=== PATIENT | male | born 1985 | race Caucasian/White ===

== ENCOUNTER 2017-03-14 11:32 | Day surgery (SDC) | payer OTHER ==
[~2017-03-14 11:32] MED LIST: Lactated Ringers 1,000 ML IV SCH; Lidocaine 1%/Sod Bicarbonate in NS 8.4% 1 ML Syringe PRN; Sodium Chloride 0.9% 10 ML Syringe FLUSH PRN
--- NOTE | 2017-03-14 12:26 | PCM.PREANE ---
Preanesthetic Assessment - Anesthesia/Transfusion/Family Hx Anesthesia History: Prior Anesthesia Without Reaction Family History of Anesthesia Reaction: No Transfusion History: No Prior Transfusion(s) - Review of Systems General: No Symptoms Pulmonary: No Symptoms Cardiovascular: No Symptoms, Other (Hospitalized with racing heart in 2014. Consuming too many energy drinks. ) Gastrointestinal: Other (Occasional Heart Burn. ) Neurological: No Symptoms Other: Reports: None - Physical Assessment NPO Status Date: 03/13/17 NPO Status Time: 22:30 Pulse: 69 O2 Sat by Pulse Oximetry: 97 Respiratory Rate: 24 Blood Pressure: 125/83 Temperature: 36.4 C Weight: 110 kg ASA Class: 2 Mental Status: Alert & Oriented x3 Airway Class: Mallampati = 1 Dentition: Reports: Normal Dentition Thyro-Mental Finger Breadths: 3 Mouth Opening Finger Breadths: 3 ROM/Head Extension: Full Lungs: Clear to Auscultation, Normal Respiratory Effort Cardiovascular: Regular Rate, Regular Rhythm - Allergies Allergies/Adverse Reactions: Allergies Allergy/AdvReac Type Severity Reaction Status Date / Time amoxicillin Allergy Cannot Verified 03/13/17 08:16 Remember - Acknowledgements Anesthesia Type Planned: MAC Pt an Appropriate Candidate for the Planned Anesthesia: Yes Alternatives and Risks of Anesthesia Discussed w Pt/Guardian: Yes Pt/Guardian Understands and Agrees with Anesthesia Plan: Yes PreAnesthesia Questionnaire Cardiovascular History: Reports: None Respiratory History: Reports: None Gastrointestinal History: Reports: Gastritis, Other (See Below) Other Gastrointestinal History: hematochezia Genitourinary History: Reports: None ROAD CUTTER History: Reports: None Musculoskeletal History: Reports: None Neurological History: Reports: None Psychiatric History: Reports: None Endocrine/Metabolic History: Reports: None Hematologic History: Reports: None Immunologic History: Reports: None Oncologic (Cancer) History: Reports: None Dermatologic History: Reports: Other (See Below) Other Dermatologic History: scar to hand - Past Surgical History Head Surgeries/Procedures: Reports: None HEENT Surgical History: Reports: Naso-Sinus Surgery Cardiovascular Surgical History: Reports: None Respiratory Surgical History: Reports: None GI Surgical History: Reports: None Female Surgical History: Reports: None Male Surgical History: Reports: None Endocrine Surgical History: Reports: None Neurological Surgical History: Reports: None Musculoskeletal Surgical History: Reports: None Oncologic Surgical History: Reports: None - SUBSTANCE USE Smoking Status *Q: Current Some Day Smoker Recreational Drug Use History: No - HOME MEDS Home Medications: Home Meds . [No Known Home Meds] 03/13/17 [History] - CURRENT (IN HOUSE) MEDS Current Meds: Current Medications Lactated Ringer's (Ringers, Lactated) 1,000 mls @ 125 mls/hr IV ASDIRECTED LOLITA Stop: 03/14/17 23:00 Lidocaine/Sodium Bicarbonate (Buffered Lidocaine 1% In Ns 8.4%) 0.25 ml .XX ONETIME PRN PRN Reason: Prior to IV Start Stop: 03/14/17 18:00 Sodium Chloride (Saline Flush) 10 ml FLUSH ASDIRECTED PRN PRN Reason: Keep Vein Open Stop: 03/14/17 18:00
[2017-03-14] MEDS ORDERED: Lidocaine 1% 2 ML ONE ×2 (12:59)
[2017-03-14] MEDS ORDERED: Propofol 200 MG/20 ML SDV ONE ×2 (12:59→13:39)
[2017-03-14] MEDS ORDERED: fentaNYL 100 MCG/2 ML SDV ONE (12:59)
--- NOTE | 2017-03-14 13:45 | PCM48HPAN ---
Post Anesthesia Note - EVALUATION WITHIN 48HRS OF ANESTHETIC Vital Signs in Normal Range: Yes Patient Participated in Evaluation: Yes Respiratory Function Stable: Yes Airway Patent: Yes Cardiovascular Function Stable: Yes Hydration Status Stable: Yes Pain Control Satisfactory: Yes Nausea and Vomiting Control Satisfactory: Yes Mental Status Recovered: Yes
--- NOTE | 2017-03-14 13:45 | PCM.OPNOTE ---
- General Post-Op/Procedure Note Date of Surgery/Procedure: 03/14/17 Operative Procedure(s): colonoscopy with random ileal and rectal biopsies Findings: perianal skin tags with internal hemorrhoids but otherwise normal colonoscopy Pre Op Diagnosis: chronic diarrhea with rectal bleeding Post-Op Diagnosis: 1. perianal skin tags. 2. Internal hemorrhoids Anesthesia Technique: MAC, Moderate Sedation Primary Surgeon: Hoang Drummond Pathology: ileal and rectal biopsies EBL in mLs: 0 Complications: None Condition: Good Free Text/Narrative:: After adequate IV sedation and analgesia was obtained with monitoring the patient was placed on his left side. Perianal inspection revealed the anal tags. On digital rectal examination I could palpate internal hemorrhoids. The sphincter tone was normal. A lubricated colonoscope was inserted into the rectum then advanced under direct vision with air insufflation as necessary to the cecum. The bowel preparation was adequate. I intubated the terminal ileum which was grossly normal. Given his history I took a random biopsy with cold forceps. The cecum, ascending colon, descending, and transverse colons were endoscopically normal with no mass lesions or evidence of inflammatory bowel disease. The sigmoid and rectum were unremarkable as well in this regard. A rectal biopsy was taken for review. Air was removed as I finished the procedure which he tolerated well. Retail Marketing Specialist photographs were taken for the patient and for the medical record.
== END 2017-03-14 14:10 | disposition home or self-care (01) ==
LOC: JD.SDS 11:32
PROVIDERS: ATTEND Surgery
DX: K64.8 Other hemorrhoids (principal); K64.4 Residual hemorrhoidal skin tags; Z88.1 Allergy status to other antibiotic agents; Z79.899 Other long term (current) drug therapy; Z87.891 Personal history of nicotine dependence
CPT/HCPCS: 45380; J3010; J7120; 00810; J2704

== ENCOUNTER 2017-10-02 13:43 | Emergency (ER) | payer OTHER ==
[2017-10-02] MEDS ORDERED: Acetaminophen/oxyCODONE 325-5 MG Tab PO ONE (14:12)
--- NOTE | 2017-10-02 14:12 | EDM.PDOC ---
ED HPI GENERAL MEDICAL PROBLEM - General Chief Complaint: Lower Extremity Injury/Pain Stated Complaint: RIGHT LEG Time Seen by Provider: 10/02/17 14:00 Source of Information: Reports: Patient History Limitations: Reports: No Limitations - History of Present Illness INITIAL COMMENTS - FREE TEXT/NARRATIVE: 32-year-old male presents to the ED for evaluation of severe pain right leg. Patient states he suffered a work related injury August 13 . 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 This resulted in a fracture of the distal right tibia. He was taken to [facility] where he underwent surgery august 14 with rodding of the tibia. He then went home to [place], [place] for rehabilitation. He did see PT there. Initially he was instructed to take his cast boot brace off and start walking on it only 2 weeks after surgery. He did so but had increased pain. He requested to see another PT who advised exactly the opposite. Back in the boot for another 2-3 weeks and then follow-up with orthopedic surgeon. Patient has having increased pain in the right lower extremity to the point that he can hardly sleep even though he keeps it elevated on a pillow at nighttime. He did see orthopedic surgery at least had x-rays of his right tib-fib about 7 days ago and apparently the surgeon felt there was good callus formation at the fracture site and no displacement of the tibial saleem. However over the last 2 days she's had increased pain and swelling into the point that he can't walk even to the bathroom today. Denies any shortness of breath or pleuritic chest pain or hemoptysis. Taking large doses of Aleve and/or Motrin for pain relief. Day his white but full turn gel on his knee and over the fracture site and he states his seem to give him some degree of pain relief. Currently pain is 8 out of 10 Onset: Other (Initial injury was mid July of this year.) Onset Date: 08/15/17 (Pain and swelling in the right lower extremity have increased dramatically over the last 48 hours.) Duration: Week(s): Location: Reports: Lower Extremity, Right Quality: Reports: Ache, Throbbing Severity: Severe Improves with: Reports: None (Current pain is 8 out of 10.) Worsens with: Reports: Other Context: Reports: Trauma (Initial fracture secondary to fall from a pole that he was climbing for work. Patient is alignment.). Denies: Activity (Movement and trying to weight-bear.), Exercise, Lifting, Sick Contact Associated Symptoms: Reports: No Other Symptoms Treatments CLAM PICKER: Reports: NSAIDS (Usually large doses of Aleve.) Right Leg Pain Score (Numeric/FACES): 7 - Related Data Allergies Allergy/AdvReac Type Severity Reaction Status Date / Time amoxicillin Allergy Cannot Verified 10/02/17 13:58 Remember Penicillins Allergy Cannot Verified 10/02/17 13:58 Remember Home Meds: Home Meds Gabapentin [Neurontin] 100 mg PO BID #60 capsule 10/02/17 [Rx] oxyCODONE HCl/Acetaminophen [Percocet 5-325 mg Tablet] 1 - 2 each PO Q6H PRN # 30 tablet 10/02/17 [Rx] Past Medical History Cardiovascular History: Reports: None Respiratory History: Reports: None Gastrointestinal History: Reports: Gastritis, Other (See Below) Other Gastrointestinal History: hematochezia Genitourinary History: Reports: None DIAL MOUNTER History: Reports: None Musculoskeletal History: Reports: None Neurological History: Reports: None Psychiatric History: Reports: None Endocrine/Metabolic History: Reports: None Hematologic History: Reports: None Immunologic History: Reports: None Oncologic (Cancer) History: Reports: None Dermatologic History: Reports: Other (See Below) Other Dermatologic History: scar to hand - Past Surgical History Head Surgeries/Procedures: Reports: None HEENT Surgical History: Reports: Naso-Sinus Surgery Cardiovascular Surgical History: Reports: None Respiratory Surgical History: Reports: None GI Surgical History: Reports: None Male Surgical History: Reports: None Endocrine Surgical History: Reports: None Neurological Surgical History: Reports: None Musculoskeletal Surgical History: Reports: None Oncologic Surgical History: Reports: None Social & Family History - Tobacco Use Smoking Status *Q: Never Smoker - Caffeine Use Caffeine Use: Reports: Coffee - Living Situation & Occupation Living situation: Reports: Occupation: Employed Review of Systems - Review of Systems Review Of Systems: See Below Constitutional: Denies: Chills, Diaphoresis, Fever, Weakness, Other Respiratory: Reports: No Symptoms Cardiovascular: Reports: No Symptoms GI/Abdominal: Reports: No Symptoms Genitourinary: Reports: No Symptoms Musculoskeletal: Reports: Leg Pain (See history of present illness) Skin: Reports: No Symptoms Neurological: Reports: No Symptoms Psychiatric: Reports: No Symptoms ED EXAM, GENERAL - Physical Exam Exam: See Below Exam Limited By: No Limitations General Appearance: Alert, WD/WN, Mild Distress Respiratory/Chest: No Respiratory Distress, Lungs Clear, Normal Breath Sounds, No Accessory Muscle Use Cardiovascular: Normal Peripheral Pulses, Regular Rate, Rhythm, No Edema, No Gallop, No Murmur, No Rub Peripheral Pulses: 1+: Dorsalis Pedis (R), 3+: Posterior Tibial (R), Dorsalis Pedis (L) GI/Abdominal: Normal Bowel Sounds, Soft, Non-Tender, No Organomegaly Back Exam: Normal Inspection, Full Range of Motion Extremities: Other (Patient has evidence of recent surgery to his right knee and tib-fib. This is where walk was inserted into his fracture tibia he does not have any true effusion of the right knee joint. His wound or surgical wound is tender to touch above his patella a little bit to the lateral aspect of the midline. He does have pain over his distal tibia at the fracture site. The entire leg is obviously swollen and very taut to palpation particularly in the calf musculature. There is no popliteal cyst. Does have pain on palpation in the popliteal fossa however.) Neurological: Alert, Oriented, CN II-XII Intact, Normal Cognition Psychiatric: Normal Affect, Normal Mood Skin Exam: Warm, Dry, Intact, Normal Color, No Rash Course - Vital Signs Last Recorded V/S: Last Vital Signs Temp 36.1 C 10/02/17 13:53 Pulse 80 10/02/17 13:53 Resp 16 10/02/17 13:53 BP 135/76 10/02/17 13:53 Pulse Ox 97 10/02/17 13:53 - Orders/Labs/Meds Orders: Active Orders 24 hr Category Date Time Status Tibia Fibula Rt [CR] Stat Exams 10/02/17 14:07 Taken VL Duplex Lwr Ext Veins Ltd Rt [US] Stat Exams 10/02/17 14:09 Taken Meds: Medications Discontinued Medications Generic Name Dose Route Start Last Admin Trade Name Freq PRN Reason Stop Dose Admin Oxycodone/Acetaminophen 2 tab 10/02/17 14:12 10/02/17 14:52 Percocet 325-5 Mg PO 10/02/17 14:13 2 tab ONETIME ONE Administration - Radiology Interpretation Free Text/Narrative:: 31-year-old male presents the ED for evaluation of severe pain right lower extremity. Initial injury occurred around mid July when he suffered a work related injury. 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 He landed hard on his right lower extremity suffering a fracture of his distal right tibia. He was taken to [facility] for definitive surgical management. Injury occurred on 13 August and surgery was done on the . He had a saleem placed in his right tibia. Discharge from hospital 2 days later and he went home to [facility] for cares this was close to home. He did see physiotherapy at that institution. He states he's been having a lot of pain in the leg. Orthopedic surgeon advised on follow-up just to continue Aleve. Patient states it's not helping with the pain. Over the last 2 days the right lower extremities become much more swollen than normal and much more painful. He can't even weight-bear at all on it. Patient has been on a recent long trip 9 hours. He's also had an nii wrap binding his right lower extremity to try and limit the swelling. This places him at risk of a DVT. Clinically I am highly suspicious she has a DVT in his right leg. An x-ray of the right tib-fib to be done. Doppler ultrasound to be done as well. No lab work at this time. Given 2 Percocet 5/325 milligram tablets orally. - Re-Assessments/Exams Free Text/Narrative Re-Assessment/Exam: 10/02/17 14:57 x-ray of the tib-fib reveals that he did suffer fractures midshaft of the tibia and fibula. The saleem is well positioned in the fibula with screws so that he cannot migrate. Some early callosity around the fibular fracture but not so much at the fibula tibia fracture. Remains a 2-3 mm gap on the medial aspect of the tibia. 10/02/17 15:13 upper ultrasound of the right lower extremity is also negative for any DVT. On further questioning of the patient there is some suggestion that he may have a torn cartilage in his knee. He states some of the exercises he does wearing wraps a sheet around the sole of his foot and brings his knee up closer to his chest it catches in the knee and causes severe pain. This is concerning for possible medial meniscal tear breath the time of injury. I've asked him to speak to his orthopedic surgeon about this upon review which is I believe a October 22. MRI of the knee could be done to ascertain the anatomy of the menisci. In the meantime I am going to place him on Percocet 5/3/25 milligrams strength. Patient advised to take these only as needed for severe pain as there is a potential for addiction. I will also placement gabapentin 100 mg in the morning and 100 mg at bedtime in an effort to try relieve his pain in his knee and leg. I worry that he is going onto a form of reflex synthetic dystrophy to for this occurs he may never be able to return to work. Departure - Departure Time of Disposition: 15:15 Disposition: Home, Self-Care 01 Condition: Fair Clinical Impression: Chronic lower limb pain Qualifiers: Laterality: right Qualified Code(s): M79.604 - Pain in right leg; G89.29 - Other chronic pain - Discharge Information Prescriptions: Gabapentin [Neurontin] 100 mg PO BID #60 capsule oxyCODONE HCl/Acetaminophen [Percocet 5-325 mg Tablet] 1 - 2 each PO Q6H PRN # 30 tablet PRN Reason: pain relief. Referrals: Juli Garcia [facility] [Primary Care Provider] - Forms: ED Department Discharge Additional Instructions: Evaluation the emergency room today in regards to increased pain and swelling right lower extremity. Initial injury is occurred around August 13 with fracture of the mid shafts of the right tibia and fibula bone in your lower extremity. Subsequent surgery was rodding of the tibia. X-rays of the bones show that there is callus formation around the fibula and a little early signs of callus formation at the tibial fracture. Hardware is in very good position and is screwed in place so that he cannot move out of position. A Doppler ultrasound of the leg was carried out to rule out any blood clot within the lower extremity all anterior groin. No blood clots were identified. Therefore increased pain is due to the fracture pain of course and healing. I have some concerns that there may be some nerve involvement in your pain syndrome. All this reflex sympathetic dystrophy. Suggest heat packs to the leg is much as possible to help reduce the swelling. I get up and walk and bear weight and use it is much as possible in spite of the pain. I gave you a prescription for gabapentin 100 mg to be used twice daily 1 at bedtime one in the morning this and may initially cause a little bit of fatigue but after a week. Symptoms will go away. This medicine is used to try and alleviate some of nerve pain in her right lower extremity. Percocet tabs 5/3/25 milligrams one or 2 every 6 hours as needed for pain relief primarily at bedtime to help sleep when the pain is severe. Of course this medication can cause addiction and therefore I wanted to use it only as needed. Follow-up with her personal care provider and orthopedic surgeon as planned in the next few weeks. - My Orders Last 24 Hours: My Active Orders 10/02/17 14:07 Tibia Fibula Rt [CR] Stat 10/02/17 14:09 VL Duplex Lwr Ext Veins Ltd Rt [US] Stat - Assessment/Plan Last 24 Hours: My Active Orders 10/02/17 14:07 Tibia Fibula Rt [CR] Stat 10/02/17 14:09 VL Duplex Lwr Ext Veins Ltd Rt [US] Stat
--- NOTE | 2017-10-02 14:59 | US ---
Right lower extremity deep venous ultrasound: Duplex and color flow imaging was obtained of the right common femoral, proximal greater saphenous, superficial femoral, popliteal, posterior tibial and peroneal vein. Left common femoral vein also was evaluated. Normal phasic flow, augmentation and compression is seen. Impression: 1. No evidence of deep venous thrombosis within the right lower extremity or within the left common femoral vein. Diagnostic code #1
--- NOTE | 2017-10-05 10:59 | CR ---
Right tibia and fibula: Two views of the right tibia and fibula were obtained. Comparison: No previous study. Fracture is identified within the mid one third shaft of the tibia and fibula. Tibial fracture is affixed with intramedullary saleem. Mild callus seen around these fractures and they are likely subacute in age. Please correlate. No acute bony abnormality is appreciated. Soft tissue swelling is noted. Impression: 1. Fracture with mild callus and intramedullary saleem as described above. 2. Soft tissue swelling. 3. No acute bony abnormality is identified. Diagnostic code #2
== END 2017-10-02 15:38 | disposition home or self-care (01) ==
LOC: JD.ED 13:43
DX: M79.604 Pain in right leg (principal); G89.29 Other chronic pain; Z88.1 Allergy status to other antibiotic agents; Z88.0 Allergy status to penicillin; Z79.899 Other long term (current) drug therapy
CPT/HCPCS: 73590; 93971; 99284; A9270

== ENCOUNTER 2017-11-09 20:05 | Emergency (ER) | payer OTHER ==
--- NOTE | 2017-11-09 21:10 | EDM.PDOC ---
ED HPI GENERAL MEDICAL PROBLEM - General Chief Complaint: Lower Extremity Injury/Pain Stated Complaint: RIGHT LEG PROBLEM Time Seen by Provider: 11/09/17 20:32 Source of Information: Reports: Patient History Limitations: Reports: No Limitations - History of Present Illness INITIAL COMMENTS - FREE TEXT/NARRATIVE: This is a 32 year old male. On August 14 he had a right tibfib fracture with saleem placement due to the fracture. He is presently in PT and they pushed him rather hard today and he had pain in his right calf and they stopped the physical therapy. When he got home he noted some swelling in the right calf and increase pain. He is concerned about a blood clot in his leg. No SOB or chest pain noted. No fever or chills. No other acute problems. Right Lower Leg Pain Score (Numeric/FACES): 8 - Related Data Allergies Allergy/AdvReac Type Severity Reaction Status Date / Time amoxicillin Allergy Cannot Verified 10/02/17 13:58 Remember Penicillins Allergy Cannot Verified 10/02/17 13:58 Remember Home Meds: Home Meds Gabapentin [Neurontin] 100 mg PO BID #60 capsule 10/02/17 [Rx] traMADol [Ultram] 50 mg PO Q8H PRN #10 tab 11/09/17 [Rx] Past Medical History Cardiovascular History: Reports: None Respiratory History: Reports: None Gastrointestinal History: Reports: Gastritis, Other (See Below) Other Gastrointestinal History: hematochezia Genitourinary History: Reports: None 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 Musculoskeletal History: Reports: None Neurological History: Reports: None Psychiatric History: Reports: None Endocrine/Metabolic History: Reports: None Hematologic History: Reports: None Immunologic History: Reports: None Oncologic (Cancer) History: Reports: None Dermatologic History: Reports: Other (See Below) Other Dermatologic History: scar to hand - Past Surgical History Head Surgeries/Procedures: Reports: None HEENT Surgical History: Reports: Naso-Sinus Surgery Cardiovascular Surgical History: Reports: None Respiratory Surgical History: Reports: None GI Surgical History: Reports: None Male Surgical History: Reports: None Endocrine Surgical History: Reports: None Neurological Surgical History: Reports: None Musculoskeletal Surgical History: Reports: None, Other (See Below) Other Musculoskeletal Surgeries/Procedures:: tib/fib fracture right leg Oncologic Surgical History: Reports: None Social & Family History - Tobacco Use Smoking Status *Q: Never Smoker - Caffeine Use Caffeine Use: Reports: Coffee, Energy Drinks, Soda - Recreational Drug Use Recreational Drug Use: No - Living Situation & Occupation Living situation: Reports: Occupation: Employed Review of Systems - Review of Systems Review Of Systems: See Below Constitutional: Denies: Chills, Fever Eyes: Reports: No Symptoms Ears: Reports: No Symptoms Nose: Reports: No Symptoms Mouth/Throat: Reports: No Symptoms Respiratory: Denies: Shortness of Breath, Wheezing, Pleuritic Chest Pain Cardiovascular: Denies: Chest Pain GI/Abdominal: Reports: No Symptoms Genitourinary: Reports: No Symptoms Musculoskeletal: Reports: Other (As per history of present illness) Skin: Reports: No Symptoms Neurological: Reports: No Symptoms Psychiatric: Reports: No Symptoms ED EXAM, GENERAL - Physical Exam Exam: See Below Exam Limited By: No Limitations General Appearance: Alert, WD/WN, No Apparent Distress Eye Exam: Bilateral Eye: Normal Inspection Ears: Normal External Exam Nose: Normal Inspection Throat/Mouth: Normal Inspection Head: Normocephalic Neck: Supple Respiratory/Chest: No Respiratory Distress, Lungs Clear, Normal Breath Sounds Cardiovascular: Regular Rate, Rhythm, No Murmur GI/Abdominal: Soft, Non-Tender Back Exam: Full Range of Motion Extremities: Other (The right lower extremity does have some mild swelling compared to the left lower extremity, the calf itself is very tender on palpation, distal pulses are intact Refill is normal. He is able to dorsiflex his foot but stretches his calf muscles and he has tenderness. The thigh itself is nontender does not appear to be swollen.) Neurological: Alert, Oriented Psychiatric: Normal Affect, Normal Mood Skin Exam: Warm, Dry Course - Vital Signs Last Recorded V/S: Last Vital Signs Temp 98.1 F 11/09/17 20:35 Pulse 72 11/09/17 20:35 Resp 20 11/09/17 20:35 BP 142/97 H 11/09/17 20:35 Pulse Ox 98 11/09/17 20:35 - Orders/Labs/Meds Orders: Active Orders 24 hr Category Date Time Status VL Duplex Lwr Ext Veins Ltd Rt [US] Stat Exams 11/09/17 20:50 Taken - Re-Assessments/Exams Free Text/Narrative Re-Assessment/Exam: 11/09/17 23:31 Ultrasound of the right lower extremity does not show any evidence of DVT or fluid collection or hematoma. I spoke to the patient regarding these results. I believe he just overdid it in physical therapy and straining the muscle when it wasn't used to being worked which has caused the soreness in the calf as well as some of the swelling in the lower extremity. Departure - Departure Time of Disposition: 23:32 Disposition: Home, Self-Care 01 Condition: Good Clinical Impression: Strain of right gastrocnemius muscle Qualifiers: Encounter type: initial encounter Qualified Code(s): S86.111A - Strain of other muscle(s) and tendon(s) of posterior muscle group at lower leg level, right leg, initial encounter - Discharge Information *PRESCRIPTION DRUG MONITORING PROGRAM REVIEWED*: Not Applicable *COPY OF PRESCRIPTION DRUG MONITORING REPORT IN PATIENT MONICO: Not Applicable Prescriptions: traMADol [Ultram] 50 mg PO Q8H PRN #10 tab PRN Reason: Pain Referrals: Juli Garcia PATIENT LIAISON [Primary Care Provider] - Forms: ED Department Discharge Additional Instructions: Keep the right leg elevated as much as possible, use ice to the calf to help with the soreness, take the tramadol as needed for pain, be very careful about exercising that calf muscle until the soreness goes away, continue with physical therapy and let them modify the therapy for your sore lower leg, follow -up with your family doctor as needed, return to the ER if needed - My Orders Last 24 Hours: My Active Orders 11/09/17 20:50 VL Duplex Lwr Ext Veins Ltd Rt [US] Stat - Assessment/Plan Last 24 Hours: My Active Orders 11/09/17 20:50 VL Duplex Lwr Ext Veins Ltd Rt [US] Stat
--- NOTE | 2017-11-11 11:43 | US ---
Right lower extremity deep venous ultrasound: Duplex and color flow imaging was obtained of the right common femoral, proximal greater saphenous, superficial femoral, popliteal, posterior tibial and peroneal veins. Left common femoral vein was also evaluated. Findings: Normal phasic flow, augmentation and compression are seen. No popliteal cyst is identified. No abnormality seen on images of the calf. Impression: 1. No evidence of deep venous thrombosis within the right lower extremity or left common femoral vein. 2. No ultrasound abnormality is seen within the calf. Diagnostic code #1 Agree with preliminary report issued by [facility] ([facility] preliminary report dictated on 11/09/17, 11:26 PM Central Time)
== END 2017-11-09 23:44 | disposition home or self-care (01) ==
LOC: JD.ED 20:05
DX: S86.111A Strain of other muscle(s) and tendon(s) of posterior muscle group at lower leg level, right leg, initial encounter (principal); Z88.0 Allergy status to penicillin; Z88.1 Allergy status to other antibiotic agents; X58.XXXA Exposure to other specified factors, initial encounter
CPT/HCPCS: 93971-26-RT; 93971-RT; 99283; 99283-25

== ENCOUNTER 2020-06-10 07:48 | Day surgery (SDC) | payer OTHER, BC ==
[~2020-06-10 07:48] MED LIST changes: +Lidocaine 1%/Sod Bicarbonate in NS 8.4% 1 ML Syringe IDERM PRN; -Lidocaine 1%/Sod Bicarbonate in NS 8.4% 1 ML Syringe PRN
[2020-06-10] MEDS ORDERED: Lidocaine 1% 4 ML ONE (08:08)
[2020-06-10] MEDS ORDERED: Propofol 200 MG/20 ML SDV ONE ×2 (08:08→08:45)
[2020-06-10] MEDS ORDERED: fentaNYL 100 MCG/2 ML SDV ONE (08:08)
[2020-06-10] MEDS ORDERED: Midazolam 1 MG/ML 2 ML SDV ONE (08:11)
--- NOTE | 2020-06-10 08:45 | PCM.PREANE ---
Preanesthetic Assessment - Procedure Proposed Procedure: EGD and Colonoscopy - Anesthesia/Transfusion/Family Hx Anesthesia History: Prior Anesthesia Without Reaction Family History of Anesthesia Reaction: No Transfusion History: No Prior Transfusion(s) - Review of Systems General: No Symptoms Pulmonary: No Symptoms Cardiovascular: Other (History of chest pressure/pain from excessive energy drinks and stress. No episodes for greater than one year. ) Gastrointestinal: No Symptoms Neurological: No Symptoms Other: Reports: None - Physical Assessment NPO Status Date: 06/09/20 NPO Status Time: 23:45 Vital Signs: 97.2F 16 53 137/83 98% Weight: 106 kg ASA Class: 2 Mental Status: Alert & Oriented x3 Airway Class: Mallampati = 1 Dentition: Reports: Normal Dentition Thyro-Mental Finger Breadths: 3 Mouth Opening Finger Breadths: 3 ROM/Head Extension: Full Lungs: Clear to Auscultation, Normal Respiratory Effort Cardiovascular: Regular Rate, Regular Rhythm - Allergies Allergies/Adverse Reactions: Allergies Allergy/AdvReac Type Severity Reaction Status Date / Time amoxicillin Allergy Cannot Verified 01/30/18 10:25 Remember - Acknowledgements Anesthesia Type Planned: MAC Pt an Appropriate Candidate for the Planned Anesthesia: Yes Alternatives and Risks of Anesthesia Discussed w Pt/Guardian: Yes Pt/Guardian Understands and Agrees with Anesthesia Plan: Yes PreAnesthesia Questionnaire HEENT History: Reports: None Cardiovascular History: Reports: None Respiratory History: Reports: None Gastrointestinal History: Reports: Cholelithiasis, Gastritis, Other (See Below) Other Gastrointestinal History: hematochezia, abdominal pain Genitourinary History: Reports: None 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 Musculoskeletal History: Reports: Other (See Below) Other Musculoskeletal History: finger numbness, leg pain, right tibia fracture with surgery Neurological History: Reports: None Psychiatric History: Reports: None Endocrine/Metabolic History: Reports: None Hematologic History: Reports: None Immunologic History: Reports: None Oncologic (Cancer) History: Reports: None Dermatologic History: Reports: Other (See Below) Other Dermatologic History: scar to hand - Past Surgical History Head Surgeries/Procedures: Reports: None HEENT Surgical History: Reports: Naso-Sinus Surgery Cardiovascular Surgical History: Reports: None Respiratory Surgical History: Reports: None GI Surgical History: Reports: None Female Surgical History: Reports: None Male Surgical History: Reports: None Endocrine Surgical History: Reports: None Neurological Surgical History: Reports: None Musculoskeletal Surgical History: Reports: None, Other (See Below) Other Musculoskeletal Surgeries/Procedures:: tib/fib fracture right leg Oncologic Surgical History: Reports: None - HOME MEDS Home Medications: Home Meds Acetaminophen [Tylenol] 650 mg PO Q4H PRN 01/29/18 [History] oxyCODONE HCl/Acetaminophen [Percocet 5-325 mg Tablet] 1 each PO Q4H PRN #20 tablet 01/30/18 [Rx]
--- NOTE | 2020-06-10 09:24 | PCM.PRNOTE ---
- Free Text/Narrative Note: Date: 06/10/2020 Procedure: screening colonoscopy, diagnostic esophagogastroduodenoscopy Indications: strong family history of colon cancer. Reflux type symptoms. Endoscopist: Bigg Peña MD Findings: gross evidence of gastritis and distal esophagitis. Excellent colon prep. Appendiceal orifice seen. No polyps identified. Detailed Report: The patient was taken to the endoscopy suite and placed in left lateral decubitus position. Time out was performed and monitored anesthesia care initiated. A bite block was placed and the endoscope was inserted into the mouth and advanced to the duodenum with ease. Duodenal mucosa appeared normal, a sample biopsy was obtained with cold forceps. There was gross appearance of gastritis with possible healed ulcer noted at posterior aspect of antrum; a biopsy was obtained. On retroflexion, no hiatal hernia was noted. There were no gastric ulcers seen. The distal esophagus appeared to have some mild inflammatory changes without Z line irregularity. Air was suctioned from the stomach and the scope withdrawn. Next, colonoscopy was performed. The anus appeared normal and digital rectal exam was unremarkable. The colonoscope was inserted and advanced to the cecum. The appendiceal orifice was visualized. The terminal ileum was intubated and a sample biopsy obtained. The prep was excellent, save for a few bubbly areas. The scope was slowly withdrawn and mucosal surfaces carefully inspected. No polyps were identified. There was no diverticular disease. On retroflexion in the rectum no abnormality was noted. Air was suctioned prior to withdrawal of the scope. The patient tolerated the procedure well.
== END 2020-06-10 10:05 | disposition home or self-care (01) ==
LOC: JD.SDS 07:48
PROVIDERS: ATTEND Surgery
DX: Z12.11 Encounter for screening for malignant neoplasm of colon (principal); K21.00 Gastro-esophageal reflux disease with esophagitis, without bleeding; R07.89 Other chest pain; Z88.0 Allergy status to penicillin; Z88.1 Allergy status to other antibiotic agents; Z80.0 Family history of malignant neoplasm of digestive organs; Z98.890 Other specified postprocedural states
CPT/HCPCS: 43239; 45380; J2250; J2704; J3010; J7120; 00813